=== PATIENT | female | born 2005 | race Two or more races ===

== ENCOUNTER 2025-03-31 00:35 | Inpatient (IN) ==
[2025-03-31 00:57] LABS: BLOOD/HEMOGLOBIN,URINE 5+ (NEGATIVE); LEUKOCYTE ESTERASE ,URINE 3+ (NEGATIVE); NITRITES,URINE NEGATIVE (NEGATIVE)
[2025-03-31 01:03] LABS: APPEARANCE,URINE SLIGHTLY HAZY (CLEAR)
[2025-03-31 01:04] LABS: SQUAMOUS EPITHELIAL CELL,UR FEW /HPF (NEGATIVE)
[2025-03-31 01:07] LABS: AMNISURE ROM TEST NO MEMBRANES RUPTURE (NO RUPTURE)
[2025-03-31 01:09] VITALS: BMI 24.6
[2025-03-31] MEDS: LR 1,000 ML IV 1,000 ML IV ONE (01:49)
[2025-03-31] MEDS: BETADINE SOLN ONE (02:15)
[2025-03-31] MEDS: OXYTOCIN 20 UNIT/1,000 ML-NS 20 UNIT/1,000 ML PLAST..BAG IV PRN (02:26)
[2025-03-31] MEDS: PITOCIN ONE (02:26)
[2025-03-31] MEDS: OXYTOCIN 20 UNIT/1,000 ML-NS 20 UNIT/1,000 ML PLAST..BAG IV SCH (03:00)
[2025-03-31] MEDS ORDERED: PITOCIN IVP ONE (03:08)
[2025-03-31] MEDS ORDERED: MILK OF MAGNESIA PO PRN (03:09)
[2025-03-31] MEDS ORDERED: MOTRIN TAB 800 MG PO PRN (03:09)
[2025-03-31 03:32] LABS: MEAN PLATELET VOLUME 10.3 fL (7.4-11.0); RED CELL DISTRIBUTION WIDTH 13.9 % (11.6-16.5)
[2025-03-31 03:36] LABS: COR CA(FOR HYPOALB) 10.0 mg/dL (8.5-10.1); CREATININE 0.90 mg/dL (0.55-1.02); eGFR NON BLACK RACES > 60 (>60)
[2025-03-31] MEDS ORDERED: LR 1,000 ML IV 1,000 ML IV SCH (04:00)
[2025-03-31] MEDS: PRENATAL PLUS PO SCH (08:23)
[2025-03-31] MEDS: NS 100 ML IV 100 ML with VENOFER 400 MG IV ONE (09:53)
[2025-04-01 08:45] VITALS: BP 95/52; PULSE 76; RESP 18; TEMP 97.6; O2SAT 98
== END 2025-04-01 14:00 | disposition home or self-care (01) | DRG 807 ==
LOC: ER 00:35 → LD 01:42 → MED/SURG 03:52
PROVIDERS: ADMIT Obstetrics & Gynecology Obstetrics; ATTEND Obstetrics & Gynecology Obstetrics
DX: Z55.8 Other problems related to education and literacy; Z37.0 Single live birth; Z3A.40 40 weeks gestation of pregnancy; O80 Encounter for full-term uncomplicated delivery